=== PATIENT | female | born 1945 | race Caucasian/White ===

== ENCOUNTER 2017-10-25 22:55 | Emergency (ER) | payer MEDICARE, OTHER ==
--- NOTE | 2017-10-25 23:25 | EDM.PDOC ---
ED HPI GENERAL MEDICAL PROBLEM - General Chief Complaint: Lower Extremity Injury/Pain Stated Complaint: FALL VIA NORTH Time Seen by Provider: 10/25/17 23:20 Source of Information: Reports: Patient, EMS, Family History Limitations: Reports: No Limitations - History of Present Illness INITIAL COMMENTS - FREE TEXT/NARRATIVE: 72 yo female says she lost her balance in her home tonight and fell with injury to the right knee. Has pHx of replacement of that knee. Here via EMS. No other areas of pain. 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) (Fentanyl 100 mcg per EMS) right knee Pain Score (Numeric/FACES): 10 - Related Data Allergies Allergy/AdvReac Type Severity Reaction Status Date / Time Benzodiazepines Allergy Delusions Verified 10/25/17 23:14 Home Meds: Home Meds Acetaminophen/oxyCODONE [Percocet 325-10 MG] 1 tab PO Q4H PRN 12/18/16 [History] Atropine/Diphenoxylate [Diphenoxylate-Atropine] 2 tab PO ASDIRECTED PRN [History] Cholecalciferol (Vitamin D3) [Vitamin D3] 2 tab PO DAILY 12/18/16 [History] FLUoxetine HCl [Fluoxetine HCl] 1 tab PO DAILY 12/18/16 [History] Famotidine 20 mg PO DAILY 12/18/16 [History] Levothyroxine Sodium 1 tab PO DAILY 12/18/16 [History] Metoprolol Tartrate [Lopressor] 100 mg PO BID 12/18/16 [History] Omeprazole 1 tab PO DAILY 12/18/16 [History] Ondansetron [Zofran] 1 tab PO Q8H PRN 12/18/16 [History] Insulin NPH/Insulin Reg,Human [Novolin 70-30] 20 - 30 units SUBCUT BID 10/25/17 [History] busPIRone HCl [Buspirone HCl] 15 mg PO BID 10/25/17 [History] glyBURIDE,Micronized [Glynase] 1 tab PO DAILY 10/25/17 [History] Past Medical History HEENT History: Reports: Impaired Vision Cardiovascular History: Reports: Hypertension Gastrointestinal History: Reports: GERD [employer]ER History: Reports: Musculoskeletal History: Reports: Back Pain, Chronic, Other (See Below) Other Musculoskeletal History: bilat shoulder pain Psychiatric History: Reports: Depression Endocrine/Metabolic History: Reports: Diabetes, Type II Hematologic History: Reports: Anemia Other Hematologic History: [facility] tx with hydrea Oncologic (Cancer) History: Reports: Leukemia - Infectious Disease History Infectious Disease History: Reports: Chicken Pox - Past Surgical History Cardiovascular Surgical History: Reports: None GI Surgical History: Reports: Cholecystectomy Musculoskeletal Surgical History: Reports: Knee Replacement Social & Family History - Tobacco Use Smoking Status *Q: Never Smoker - Caffeine Use Caffeine Use: Reports: Coffee - Recreational Drug Use Recreational Drug Use: No Review of Systems - Review of Systems Review Of Systems: See Below Constitutional: Reports: No Symptoms Eyes: Reports: No Symptoms Ears: Reports: No Symptoms Nose: Reports: No Symptoms Mouth/Throat: Reports: No Symptoms Respiratory: Reports: No Symptoms Cardiovascular: Reports: No Symptoms GI/Abdominal: Reports: No Symptoms Genitourinary: Reports: No Symptoms Musculoskeletal: Reports: Joint Pain (R knee) Skin: Reports: No Symptoms Neurological: Reports: No Symptoms ED EXAM, GENERAL - Physical Exam Exam: See Below Exam Limited By: No Limitations General Appearance: Alert, WD/WN, No Apparent Distress Eye Exam: Bilateral Eye: Normal Inspection Ears: Normal External Exam, Normal Canal, Hearing Grossly Normal Ear Exam: Bilateral Ear: Auricle Normal, Canal Normal Nose: Normal Inspection, Normal Mucosa, No Blood Throat/Mouth: Normal Inspection, Normal Lips, Normal Oropharynx, Normal Voice, No Airway Compromise Head: Atraumatic, Normocephalic Neck: Normal Inspection, Supple Respiratory/Chest: No Respiratory Distress, Lungs Clear, Normal Breath Sounds, No Accessory Muscle Use Cardiovascular: Regular Rate, Rhythm Extremities: No Pedal Edema, Other (anterior, well healed bilateral knee surgical scars. ). No: Pedal Edema, Increased Warmth, Redness Neurological: Alert, Oriented, CN II-XII Intact, Normal Cognition, No Motor/ Sensory Deficits Psychiatric: Normal Affect, Normal Mood Skin Exam: Warm, Dry, Intact, Normal Color, No Rash Course - Vital Signs Last Recorded V/S: Last Vital Signs Temp 36 C 10/26/17 00:04 Pulse 61 10/26/17 00:35 Resp 16 10/26/17 00:35 BP 184/76 H 10/26/17 00:35 Pulse Ox 99 10/26/17 00:35 - Orders/Labs/Meds Orders: Active Orders 24 hr Category Date Time Status Corado Catheter Insertion [Insert Urinary Catheter] [OM. Care 10/25/17 23:45 Ordered PC] Q24H Urinary Catheter Assessment [RC] ASDIRECTED Care 10/25/17 23:45 Active Knee 3V Rt [CR] Stat Exams 10/25/17 23:19 Ordered Lactated Ringers [Ringers, Lactated] 1,000 ml Med 10/25/17 23:45 Active IV ASDIRECTED Medication Orders Lactated Ringer's (Ringers, Lactated) 1,000 mls @ 150 mls/hr IV ASDIRECTED SYED Last Admin: 10/25/17 23:58 Dose: 150 mls/hr Meds: Medications Generic Name Dose Route Start Last Admin Trade Name Freq PRN Reason Stop Dose Admin Lactated Ringer's 1,000 mls @ 150 mls/hr 10/25/17 23:45 10/25/17 23:58 Ringers, Lactated IV 150 mls/hr ASDIRECTED SYED Administration Discontinued Medications Generic Name Dose Route Start Last Admin Trade Name Freq PRN Reason Stop Dose Admin Fentanyl 100 mcg 10/26/17 00:20 10/26/17 00:24 Sublimaze IVPUSH 10/26/17 00:21 100 mcg ONETIME ONE Administration - Radiology Interpretation Free Text/Narrative:: R knee X-ray- Departure - Departure Time of Disposition: 01:00 Disposition: DC/Tfer to Acute Hospital 02 Condition: Fair Clinical Impression: Femoral distal fracture Qualifiers: Encounter type: initial encounter Fracture type: closed Fracture morphology: other fracture Laterality: right Qualified Code(s): S72.491A - Other fracture of lower end of right femur, initial encounter for closed fracture - Discharge Information Referrals: PCP,None [Primary Care Provider] - Forms: ED Department Discharge - My Orders Last 24 Hours: My Active Orders 10/25/17 23:19 Knee 3V Rt [CR] Stat 10/25/17 23:45 Corado Catheter Insertion [Insert Urinary Catheter] [OM.PC] Q24H Urinary Catheter Assessment [RC] ASDIRECTED Lactated Ringers [Ringers, Lactated] 1,000 ml IV ASDIRECTED - Assessment/Plan Last 24 Hours: My Active Orders 10/25/17 23:19 Knee 3V Rt [CR] Stat 10/25/17 23:45 Corado Catheter Insertion [Insert Urinary Catheter] [OM.PC] Q24H Urinary Catheter Assessment [RC] ASDIRECTED Lactated Ringers [Ringers, Lactated] 1,000 ml IV ASDIRECTED
[2017-10-25] MEDS ORDERED: Lactated Ringers 1,000 ML IV SCH (23:45)
[2017-10-26] MEDS ORDERED: fentaNYL 100 MCG/2 ML SDV IVPUSH ONE (00:20)
[2017-10-26 00:36] VITALS: BP 184/76
--- NOTE | 2017-10-26 09:00 | CR ---
Knee 3V Rt CLINICAL HISTORY: Pain, fall FINDINGS: Patient is a comminuted displaced fracture of the distal femur. The this extends into the r egion of the femoral prosthesis of a total knee arthroplasty. Impression: Displaced comminuted fracture the distal femur Total knee arthroplasty
== END 2017-10-26 01:15 ==
LOC: JP.ED 22:55
DX: S72.491A Other fracture of lower end of right femur, initial encounter for closed fracture (principal); I10 Essential (primary) hypertension; K21.9 Gastro-esophageal reflux disease without esophagitis; E11.9 Type 2 diabetes mellitus without complications; Z79.899 Other long term (current) drug therapy; Z88.8 Allergy status to other drugs, medicaments and biological substances; W18.30XA Fall on same level, unspecified, initial encounter
CPT/HCPCS: 51702; 73562; 96361; 96374; 99285; J3010; J7120; 99283